=== PATIENT | female | born 1995 | race African-American/Black ===

== ENCOUNTER 2020-03-04 14:42 | Emergency (ER) | payer OTHER ==
[~2020-03-04] VITALS: Ht 162.6 cm; Wt 65.0 kg
[~2020-03-04 14:42] MED LIST: FAMO40TA57 PO; NAPR-683 PO; ONDA4TAB10 SL
[2020-03-04] MEDS ORDERED: ONDANSETRON PF 4 MG/2 ML VIAL. ONE (15:23)
[2020-03-04] MEDS ORDERED: ONDANSETRON PF 4 MG/2 ML VIAL. IVP ONE (15:45)
[2020-03-04] MEDS ORDERED: IV NORMAL SALINE 1000ML BAG 1,000 ML IV ONE ×2 (15:45→16:45)
[2020-03-04 15:57] LABS: BASO % 0 % (0-3); EOS % 0 % (0-3); HEMATOCRIT 41.1 % (36.0-47.0); HEMOGLOBIN 13.6 g/dL (12.0-15.5); LYMPH % 16 % (24-48); MEAN CORPUSCULAR HEMOGLOBIN 26 pg (25-35); MEAN CORPUSCULAR HGB CONC 33 g/dL (31-37); MEAN CORPUSCULAR VOLUME 79 fL (79-100); MONO # 0.3 x10^3/uL (0.0-1.1); MONO % 5 % (0-9); NEUT # 4.9 x10^3/uL (1.8-7.7); NEUT % 78 % (31-73); PLATELET COUNT 242 x10^3/uL (140-400); RED BLOOD COUNT 5.24 x10^6/uL (3.50-5.40); RED CELL DISTRIBUTION WIDTH 14.5 % (11.5-14.5); WHITE BLOOD COUNT 6.2 x10^3/uL (4.0-11.0)
[2020-03-04] MEDS ORDERED: fentaNYL PF VIAL 100 MCG/2 ML VIAL IVP ONE (16:00)
--- NOTE | 2020-03-04 16:01 | PHYS DOC ---
Past Medical History Past Medical History: GERD Additional Past Medical Histor: acid reflex Past Surgical History: Other Additional Past Surgical Histo: hernia repair at 6 y/o Smoking Status: Never Smoker Alcohol Use: None Drug Use: None General Adult EDM: Chief Complaint: ABDOMINAL PAIN HPI: HPI: Patient is a 24 year old female who presents with nausea, vomiting, lower abdominal cramping. She is currently on her period. She states that this happens every month. She states that she was on medication for nausea but cannot remember the name of it. She states she just vomits it back up. States that she has not been seen by a mail manager. She states that she has been to [facility] in the past. She is rating her pain a 10 out of 10. She is currently vomiting bile. The vomiting started today. Patient denies fever, LOC, dizziness, headache, chest pain, shortness of air, cough, heavy vaginal bleeding, abnormal vaginal discharge, STD concerns. She has a history of GERD and a hernia repair. Review of Systems: Review of Systems: Constitutional: Denies fever or chills. [] Eyes: Denies change in visual acuity. [] HENT: Denies nasal congestion or sore throat. [] Respiratory: Denies cough or shortness of breath. [] Cardiovascular: Denies chest pain or edema. [] GI: + abdominal pain, +nausea, +vomiting, denies bloody stools or diarrhea. [] : Denies dysuria. Current menstrual. [] Musculoskeletal: Denies back pain or joint pain. [] Integument: Denies rash. [] Neurologic: Denies headache, focal weakness or sensory changes. [] Endocrine: Denies polyuria or polydipsia. [] Lymphatic: Denies swollen glands. [] Psychiatric: Denies depression or anxiety. [] Heart Score: Risk Factors: Risk Factors: DM, Current or recent (<one month) smoker, HTN, HLP, family history of CAD, obesity. Risk Scores: Score 0 - 3: 2.5% MACE over next 6 weeks - Discharge Home Score 4 - 6: 20.3% MACE over next 6 weeks - Admit for Clinical Observation Score 7 - 10: 72.7% MACE over next 6 weeks - Early Invasive Strategies Current Medications: Current Medications Medications (Trade) Dose Ordered Sig/Tricia Start Time Stop Time Status Last Admin Dose Admin Fentanyl Citrate (Fentanyl 2ml Vial) 50 mcg 1X ONCE 03/04/20 16:00 03/04/20 16:01 Ondansetron HCl (Zofran) 4 mg 1X ONCE 03/04/20 15:45 03/04/20 15:46 DC 03/04/20 15:39 4 MG Sodium Chloride 1,000 ml @ 1,000 mls/hr 1X ONCE 03/04/20 15:45 03/04/20 16:44 03/04/20 15:39 1,000 MLS/HR Allergies: Allergies: Allergies Coded Allergies Type Severity Reaction Last Updated Verified No Known Drug Allergies 03/04/20 No Physical Exam: PE: Constitutional: Well developed, well nourished, no acute distress, non-toxic appearance. [] HENT: Normocephalic, atraumatic, bilateral external ears normal, oropharynx moist, no oral exudates, nose normal. [] Eyes: PERRLA, EOMI, conjunctiva normal, no discharge. [] Neck: Normal range of motion, no tenderness, supple, no stridor. [] Cardiovascular:Heart rate regular rhythm, no murmur [] Lungs & Thorax: Bilateral breath sounds clear to auscultation [] Abdomen: Bowel sounds normal, soft, no tenderness, no masses, no pulsatile masses. [] Skin: Warm, dry, no erythema, no rash. [] Back: No tenderness, no CVA tenderness. [] Extremities: No tenderness, no cyanosis, no clubbing, ROM intact, no edema. [] Neurologic: Alert and oriented X 3, normal motor function, normal sensory function, no focal deficits noted. [] Psychologic: Affect normal, judgement normal, mood normal. Anxious EKG: EKG: [] Radiology/Procedures: Radiology/Procedures: [] Impression: [facility] [address] [place] [address] IMAGING REPORT Signed PATIENT: YEVGENIY PARRISH ACCOUNT: [id number] : 1995 LOCATION: ER AGE: 24 SEX: F EXAM STATUS: REG ER ORD. PHYSICIAN: ELIZABETH RIGGS APRN REASON: Abdomen pain, vomiting PROCEDURE: CT ABD PELV W/ IV CONTRST ONLY Exam: CT of abdomen and pelvis with contrast INDICATION: Abdominal pain, vomiting TECHNIQUE: Sequential axial images through the abdomen and pelvis obtained following the administration of 75 mL of Omni 300 IV contrast. Sagittal and coronal reformatted images were reconstructed from the axial data and reviewed. Comparisons: None FINDINGS: Heart size is normal. No pericardial effusion. Visualized lung bases are clear. No pleural effusion. Liver, spleen, pancreas, gallbladder and adrenals are unremarkable. Kidneys demonstrate symmetric enhancement. No perinephric inflammation or hydronephrosis. No renal or ureteral calculi are identified. Bladder is decompressed not well evaluated. Uterus is nonenlarged. No abnormal adnexal mass. Large and small bowel are unremarkable. Appendix is normal. There is trace free fluid in the pelvis. No free intra-abdominal air. Abdominal aorta has a normal course and caliber. Abdominal vasculature is patent. No enlarged abdominal lymph nodes are identified. No suspicious osseous lesions or acute fractures. IMPRESSION: 1. Small amount of free fluid in the pelvis, may be physiologic. 2. Otherwise, no acute process identified in the abdomen or pelvis. Exposure: One or more of the following in the visualized dose reduction techniques were utilized for this examination: 1. Automated exposure control 2. Adjustment of the MA and/or KV according to patient size 3. Use of iterative of reconstructive technique Electronically signed by: Glenda Aparicio MD (03/04/2020 6:04 PM) [id number] DICTATED and SIGNED BY: GLENDA APARICIO MD DATE: 03/04/201803 Course & Med Decision Making: Course & Med Decision Making Pertinent Labs and Imaging studies reviewed. (See chart for details) Abdomen is soft and nontender. Speaks in full complete sentences. Patient seems very anxious and is shaking. Vital signs within normal limits. Ambulatory with a steady gait. Skin pink warm dry. Alert and oriented x4. Patient is given 1 L of normal saline and Zofran and fentanyl in the ED. Urinalysis shows dehydration. Patient is given 2 L of normal saline in the ED. Patient is given Zofran x1. CT shows no acute findings. Patient is positive for marijuana. PO challenged successfully. Patient is stable and states she is feeling better. Discharged home and to follow up with primary care physician. [] Trae Disclaimer: Trae Disclaimer: This electronic medical record was generated, in whole or in part, using a voice recognition dictation system. Departure Departure Impression: Primary Impression: Cyclic vomiting syndrome Additional Impression: Marijuana use Disposition: 01 HOME, SELF-CARE Condition: STABLE Referrals: SWAPNA TOLEDO Jr, MD Patient Instructions: Cyclic Vomiting Syndrome, Marijuana Abuse-Brief Additional Instructions: Stop using Marijuana as this can induce vomiting and abdominal pain. Use Ibuprofen for pain or a heating pad. Drink plenty of fluids and slowly advance diet. Scripts Ondansetron (ONDANSETRON ODT) 4 Mg Tab.rapdis 1 TAB PO PRN Q6-8HRS, #16 TAB Prov: ELIZABETH RIGGS APRN 03/04/20 Justicifation of Admission Dx: Justifications for Admission: Justification of Admission Dx: N/A ELIZABETH RIGGS APRN Mar 04, 2020 16:01
[2020-03-04 16:07] LABS: PROTHROMBIN TIME PATIENT 14.7 SEC (11.7-14.0)
[2020-03-04 16:10] LABS: CALCIUM 8.9 mg/dL (8.5-10.1); GFR 83.1; POTASSIUM 3.4 mmol/L (3.5-5.1)
[2020-03-04] MEDS ORDERED: IOHEXOL 300 MG/ML 100ML VIAL. IV ONE (16:15)
[2020-03-04 16:23] LABS: ALBUMIN 3.9 g/dL (3.4-5.0); ALBUMIN/GLOBULIN RATIO 1.1 (1.0-1.7); TOTAL BILIRUBIN 0.8 mg/dL (0.2-1.0); TOTAL PROTEIN 7.3 g/dL (6.4-8.2)
[2020-03-04] MEDS ORDERED: CONTRAST GIVEN. MC PRN (16:30)
[2020-03-04 17:25] LABS: BILIRUBIN,URINE NEGATIVE (NEG); CLARITY,URINE CLEAR; COLOR,URINE YELLOW; NITRITE,URINE NEGATIVE (NEG); PH,URINE 5.5 (<5.0-8.0); PROTEIN,URINE NEGATIVE (NEG-TRACE); UROBILINOGEN,URINE 0.2 mg/dL (0.2 mg/dL)
[2020-03-04 17:42] LABS: BARBITURATES NEG (NEG); BENZODIAZEPINES NEG (NEG); CANNABINOIDS POS (NEG); COCAINE NEG (NEG); METHADONE NEG (NEG); OPIATES NEG (NEG); PHENCYCLIDINE NEG (NEG)
[2020-03-04 17:43] LABS: AMPHETAMINE/METHAMPHETAMINE NEG (NEG)
[2020-03-04 17:48] LABS: RBC,URINE TNTC /HPF (0-2)
[2020-03-04 17:51] LABS: SQUAMOUS EPITHELIAL CELL,UR FEW /LPF
[2020-03-04 17:53] LABS: BACTERIA,URINE 0 /HPF (0-FEW); WBC,URINE OCC /HPF (0-4)
--- NOTE | 2020-03-04 18:07 | RAD ---
Exam: CT of abdomen and pelvis with contrast INDICATION: Abdominal pain, vomiting TECHNIQUE: Sequential axial images through the abdomen and pelvis obtained following the administration of 75 mL of Omni 300 IV contrast. Sagittal and coronal reformatted images were reconstructed from the axial data and reviewed. Comparisons: None FINDINGS: Heart size is normal. No pericardial effusion. Visualized lung bases are clear. No pleural effusion. Liver, spleen, pancreas, gallbladder and adrenals are unremarkable. Kidneys demonstrate symmetric enhancement. No perinephric inflammation or hydronephrosis. No renal or ureteral calculi are identified. Bladder is decompressed not well evaluated. Uterus is nonenlarged. No abnormal adnexal mass. Large and small bowel are unremarkable. Appendix is normal. There is trace free fluid in the pelvis. No free intra-abdominal air. Abdominal aorta has a normal course and caliber. Abdominal vasculature is patent. No enlarged abdominal lymph nodes are identified. No suspicious osseous lesions or acute fractures. IMPRESSION: 1. Small amount of free fluid in the pelvis, may be physiologic. 2. Otherwise, no acute process identified in the abdomen or pelvis. Exposure: One or more of the following in the visualized dose reduction techniques were utilized for this examination: 1. Automated exposure control 2. Adjustment of the MA and/or KV according to patient size 3. Use of iterative of reconstructive technique Electronically signed by: Glenda Guzman MD (03/04/2020 6:04 PM) [id number]
[2020-03-04] MEDS ORDERED: ONDA4TAB12 PO (18:19)
[2020-03-04 18:35] VITALS: BP 110/62
== END 2020-03-04 18:43 | disposition home or self-care (01) ==
LOC: ER 14:42
DX: R11.15 Cyclical vomiting syndrome unrelated to migraine (principal); R10.30 Lower abdominal pain, unspecified; F12.90 Cannabis use, unspecified, uncomplicated; K21.9 Gastro-esophageal reflux disease without esophagitis; Z98.890 Other specified postprocedural states
CPT/HCPCS: 36415; 74177; 80053; 80307; 81001; 81025; 83690; 84702; 85025; 85610; 96361; 96374; 96375; 99285; J2405; J3010; J7030; Q9967